=== PATIENT | female | born 2000 | race Caucasian/White ===

== ENCOUNTER → 2022-07-07 | Outpatient (CLI) | payer OTHER ==
[~2022-07-07] MED LIST: CEPHALEXIN500 M1 PO; TYLENOL 325MG325 MG PO; ZOFRAN ODT4 MG PO
== END ==
LOC: COL.RAD 12:29
DX: Z31.41 Encounter for fertility testing (principal); N97.1 Female infertility of tubal origin
CPT/HCPCS: Q9967